=== PATIENT | female | born 1985 | race Caucasian/White ===

== ENCOUNTER 2017-11-06 10:41 | Emergency (ER) | payer OTHER, MEDICAID ==
--- NOTE | 2017-11-06 12:20 | EDPHY ---
H & P Stated Complaint: gen painful rash x months...open sores, bruising.. 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 She has been managed by her primary care doctor initially she was started on Bactrim but that seem to make her symptoms worse. She then had a course of prednisone which helped but when it finished her symptoms returned "with a vengeance". She has been referred to Dr. Nitin Ortiz from Rheumatology. She has seen him in the past but then her insurance changed. She could not get an appointment for 5 weeks which is now next . She states however that the last few days the pain has become so bad especially in her armpits and groin and her wounds are weeping she decided to come to the ER. She has not had a fever. She does not have any rash on her mucous membranes. No diarrhea, nausea vomiting. She is not currently on any immunosuppressants. REVIEW OF SYSTEMS: Constitutional: denies: chills, fever, recent illness, recent injury EENTM: denies: blurred vision, double vision, nose congestion Respiratory: denies: cough, shortness of breath Cardiac: denies: chest pain, irregular heart rate, lightheadedness, palpitations Gastrointestinal/Abdominal: denies: abdominal pain, diarrhea, nausea, vomiting, blood streaked stools Genitourinary: denies: dysuria, frequency, hematuria, pain Musculoskeletal: denies: joint pain, muscle pain Skin: See HPI Neurological: denies: headache, numbness, paresthesia, tingling, dizziness, weakness Hematologic/Lymphatic: denies: blood clots, easy bleeding, easy bruising Immunologic/allergic: denies: HIV/AIDS, transplant EXAM: GENERAL: Well-appearing, well-nourished and in no acute distress. HEAD: Atraumatic, normocephalic. EYES: Pupils equal round and reactive to light, extraocular movements intact, sclera anicteric, conjunctiva are normal. ENT: TMs normal, nares patent, oropharynx clear without exudates. Moist mucous membranes. NECK: Normal range of motion, supple without lymphadenopathy or JVD. LUNGS: Breath sounds clear to auscultation bilaterally and equal. No wheezes rales or rhonchi. HEART: Regular rate and rhythm without murmurs, rubs or gallops. ABDOMEN: Soft, nontender, normoactive bowel sounds. No guarding, no rebound. No masses appreciated. BACK: No CVA tenderness, no spinal tenderness, step-offs or deformities EXTREMITIES: Normal range of motion, no pitting or edema. No clubbing or cyanosis. NEUROLOGICAL: Cranial nerves II through XII grossly intact. Normal speech, normal gait. 5/5 strength, normal movement in all extremities, normal sensation PSYCH: Normal mood, normal affect. SKIN: Severe diffuse rash. With areas of coalescent at armpits and groin. Slight weeping, multiple areas are dry and scaly. Some bruising to her legs and splotchy discolorations to skin. No mucous membrane involvement Source: Patient Exam Limitations: No limitations - Personal History LMP (Females 10-55): 1-7 Days Ago Tetanus Vaccine Date: January 2012 - Medical/Surgical History Hx Asthma: No Hx Chronic Respiratory Disease: No Hx Diabetes: No Hx Cardiac Disease: No Hx Renal Disease: No Hx Cirrhosis: No Hx Alcoholism: No Hx HIV/AIDS: No Hx Splenectomy or Spleen Trauma: No Other PMH: ?vasculitus?, HTN. knee surgery. oral surgery. ear tubes - Family History Significant Family History: No pertinent family hx - Social History Smoking Status: Never smoked Alcohol Use: Sober Drug Use: None Constitutional: Initial Vital Signs Temperature (C) 37.1 C 11/06/17 11:04 Heart Rate 89 11/06/17 11:04 Respiratory Rate 18 11/06/17 11:04 Blood Pressure 151/88 H 11/06/17 11:04 O2 Sat (%) 95 11/06/17 11:04 O2 Delivery Mode Room Air Allergies/Adverse Reactions: No Known Allergies Allergy (Verified 11/15/11 09:42) Home Medications: Medication Instructions Recorded Domperidone 10mg 10 mg PO ACHS 08/25/12 FLUoxetine [Prozac 10 MG (RX)] 10 mg PO DAILY 08/25/12 Hydrochlorothiazide 12.5 mg PO DAILY 08/25/12 [Hydrochlorothiazide 12.5 MG (RX)] Hydroxychloroquine Sulfate 200 mg PO BID 08/25/12 [Plaquenil 200 mg (RX)] LORazepam [Ativan 1 mg (RX)] 1 mg PO BID PRN 08/25/12 Lisinopril [Zestril 10 mg (RX)] 10 mg PO DAILY 08/25/12 NIFEDipine [Procardia XL 30 mg] 30 mg PO DAILY 08/25/12 Pharmacy Completed 08/25/12 08/25/12 Triazolam [Halcion 0.25MG (RX)] 0.25 mg PO HS PRN 08/25/12 clonazePAM [Klonopin (RX)] 0.5 mg PO Q8H PRN 08/25/12 oxyCODONE IR [Oxycodone HCl Ir] 30 mg PO Q6H PRN 08/25/12 tiZANidine HCL [Zanaflex 2MG (RX)] 2 - 4 mg PO Q8H PRN 08/25/12 Keppra 11/07/12 Klonopin 11/07/12 Methadone 11/07/12 Hydrochlorothiazide 03/02/15 Lisinopril 03/02/15 Metoprolol Succinate 03/02/15 Morphine Sulfate 03/02/15 Norvasc 03/02/15 Oxycodone HCl 03/02/15 Wellbutrin Sr 03/02/15 Clotrimazole [Antifungal] 113 gm TP BID #1 cream..g. 11/06/17 predniSONE 60 mg PO DAILY #20 tab 11/06/17 Medical Decision Making ED Course/Re-evaluation: Patient's rash does look consistent with a vasculitis. It sounds as though she had some improvement with prednisone until she stopped taking it. I suspect she may need a long course of steroids but do not want to invalidated any testing that needs to be done by Rheumatology. I will try to contact Dr. Nitin Ortiz for advice. 1:20 p.m. I spoke with the office staff for Dr. Ortiz. He will not be back in town until Thursday. The patient's appointment is on . They will try to move up to Thursday. They state that steroids do not usually cause any interference with their testing. I will start her on a prednisone burst and will also treat with antifungal creams. I think she has a fungal superinfection in her axilla and groin. The office also offered to consult Dr. Mantilla who is [address] Ort[address] is colleagues however they are not going to be in the office for few more hours. The patient is to call Dr. Ortiz's office for further instructions this afternoon. The patient and dad are grateful with this for this plan and decline further workup or testing at this time. Differential Diagnosis: Partial list of the Differential diagnosis considered include but were not limited to; vasculitis, lupus, scabies, fungal infection, cellulitis, eczema and although unlikely based on the history and physical exam, I also considered psoriasis,. I discussed these differential diagnoses and the plan with the patient as well as the usual and expected course. The patient understands that the diagnosis is provisional and that in medicine we are not always correct and that further workup is often warranted. Usual and customary warnings were given. All of the patient's questions were answered. The patient was instructed to return to the emergency department should the symptoms at all worsen or return, otherwise to followup with the physician as we discussed. Departure - Departure Disposition: Home, Routine, Self-Care Clinical Impression: Mixed collagen vascular disease, Vasculitis, Fungal infection of skin Condition: Fair Instructions: Prednisone (By mouth), Connective Tissue Disorders (ED) Additional Instructions: Call Dr. Ortiz is office later this afternoon to see what Dr. Mantilla recommended. Referrals: Noemi Villalobos MD [Primary Care Provider] - As per Instructions Nitin Ortiz MD [place] [place] - As per Instructions Prescriptions: Clotrimazole [Antifungal] 113 gm TP BID #1 cream..g. predniSONE 60 mg PO DAILY #20 tab
[2017-11-06 13:43] VITALS: BP 134/93
== END 2017-11-06 13:42 | disposition home or self-care (01) ==
DX: M35.8 Other specified systemic involvement of connective tissue (principal); I77.6 Arteritis, unspecified; B36.9 Superficial mycosis, unspecified; I10 Essential (primary) hypertension

== ENCOUNTER → 2018-07-07 | Outpatient (CLI) | payer OTHER, MEDICAID | LOC: BHLMT 10:00 | PROVIDERS: ATTEND Internal Medicine Interventional Cardiology | DX: R60.9 Edema, unspecified (principal) | CPT/HCPCS: 93306-PO ==